=== PATIENT | female | born 1945 | race Caucasian/White ===

== ENCOUNTER 2020-06-13 09:16 | Outpatient (CLI) | payer MEDICARE, MEDICAID, SELFPAY ==
--- NOTE | ~2020-06-13 | MM_ITS ---
EXAMINATION: MM screening [facility] HISTORY: Screening TECHNIQUE: Craniocaudal and mediolateral oblique 3-D tomosynthesis images were obtained and synthetic 2-D images were generated. CAD analysis was submitted and interpreted. COMPARISON: Comparison to multiple prior studies sequentially, with oldest reviewed study dated 10/05. BREAST PARENCHYMAL COMPOSITION: There are scattered areas of fibroglandular density. FINDINGS: There is no evidence of suspicious mass, calcification, or architectural distortion to sugg est malignancy in either breast. There has been no suspicious interval change. IMPRESSION: 1. No mammographic evidence of malignancy. 2. Recommend routine screening mammography in one year. BI-RADS Category 1: Negative Reviewed, dictated and finalized at location A.
== END 2020-06-13 09:17 | disposition home or self-care (01) ==
LOC: ANHIMG 09:26
PROVIDERS: PCP Physician Assistant; Visit Provider Physician Assistant
DX: Z12.31 Encounter for screening mammogram for malignant neoplasm of breast (principal)
CPT/HCPCS: 77063; 77067

== ENCOUNTER 2021-07-10 13:57 | Outpatient (CLI) | payer MEDICARE, MEDICAID, SELFPAY ==
--- NOTE | ~2021-07-10 | DEXA_ITS ---
Bone Density Report Name: Fidelia Walters Age: 75 Sex: Female Ethnicity: White Date of : 1945 Indication: osteopenia; monitoring treatment; height loss; asthma or emphysema; postmenopausal Referring Provider: JAMI, RO Study: Bone densitometry was performed. Exam Date: July 10, 2021 Accession number: [id number] Bone Density: Region BMD T-score Z-score Classification AP Spine (L1, L2) 0.797 -1.7 0.5 Osteopenia Femoral Neck (Left) 0.509 -3.1 -1.1 Osteoporosis Total Hip (Left) 0.710 -1.9 -0.2 Osteopenia Total Hip Bilateral Avg 0.682 -2.2 -0.4 Osteopenia Femoral Neck (Right) 0.533 -2.8 -0.8 Osteoporosis Total Hip (Right) 0.654 -2.4 -0.7 Osteopenia World Health Organization criteria for BMD impression classify patients as: Normal (T-score at or above -1.0), Osteopenia (T-score between -1.0 and -2.5), or Osteoporosis (T-score at or below -2.5). 10-year Fracture Risk: FRAX not reported because: Some T-score for Spine Total or Hip Total or Femoral Neck at or below -2.5 Treated for osteoporosis Previous Exams: Region Exam Age BMD T-score BMD Change BMD Change Date g/cm2 vs Baseline vs Previous AP Spine(L1, L2) 07/10/2021 75 0.797 -1.7 -0.006(-0.8%) -0.046(-5.4%)* 04/06/2019 73 0.843 -1.2 0.039(4.9%)* 0.039(4.9%)* 03/23/2017 71 0.804 -1.6 Total Hip(Left) 07/10/2021 75 0.710 -1.9 -0.008(-1.1%) -0.017(-2.3%) 04/06/2019 73 0.726 -1.8 0.009(1.3%) 0.009(1.3%) 03/23/2017 71 0.717 -1.8 Total Hip(Right) 07/10/2021 75 0.654 -2.4 -0.084(-11.4%) -0.036(-5.3%)* 04/06/2019 73 0.690 -2.1 -0.047(-6.4%)* -0.047(-6.4%)* 03/23/2017 71 0.738 -1.7 *Denotes significance at 95% confidence level, LSC for AP Spine = 0.022 g/cm2, LSC for Total Hip = 0.027 g/cm2 Clinical Information Provided by Patient: Smokes Is being treated for osteoporosis Has used the following medications: Prolia (i.e. denosumab), Vitamin D, Calcium Has the following medical conditions: Asthma or Emphysema Patient maximum height was 60 Menopause Age: 50 No regular weight bearing exercise Does not regularly consume dairy products Drinks caffeinated beverages Onset of menses at age 14 Number of children 3 Impression: The patient has osteoporosis, based on the Left Femoral Neck T-score. The patient has risk factors, including: smoking. The BMD for the AP Spine(L1, L2) decreased, changing by -5.4% since the last DXA exam. The BMD for the Tot
--- NOTE | ~2021-07-10 | MM_ITS ---
EXAMINATION: MM screening [facility] HISTORY: Screening TECHNIQUE: Craniocaudal and mediolateral oblique 3-D tomosynthesis images were obtained and synthetic 2-D images were generated. CAD analysis was submitted and interpreted. COMPARISON: Comparison to multiple prior studies sequentially, with oldest reviewed study dated 10/05. BREAST PARENCHYMAL COMPOSITION: There are scattered areas of fibroglandular density. FINDINGS: There is no evidence of suspicious mass, calcification, or architectural distortion to sugg est malignancy in either breast. There has been no suspicious interval change. IMPRESSION: 1. No mammographic evidence of malignancy. 2. Recommend routine screening mammography in one year. BI-RADS Category 1: Negative Reviewed, dictated and finalized at location A.
== END 2021-07-10 13:58 | disposition home or self-care (01) ==
PROVIDERS: PCP Physician Assistant; Visit Provider Physician Assistant
DX: Z12.31 Encounter for screening mammogram for malignant neoplasm of breast (principal); Z78.0 Asymptomatic menopausal state; M85.88 Other specified disorders of bone density and structure, other site; M81.0 Age-related osteoporosis without current pathological fracture; M85.852 Other specified disorders of bone density and structure, left thigh; M85.851 Other specified disorders of bone density and structure, right thigh
CPT/HCPCS: 77063; 77067; 77080

== ENCOUNTER 2022-10-15 14:35 | Outpatient (CLI) | payer MEDICARE, MEDICAID, SELFPAY ==
--- NOTE | ~2022-10-15 | MM_ITS ---
EXAMINATION: MM screening [facility] HISTORY: Screening mammogram TECHNIQUE: Craniocaudal and mediolateral oblique 3-D tomosynthesis images were obtained and synthetic 2-D images were generated. CAD analysis was submitted and interpreted. COMPARISON: 07/2021, 06/13/2020, 04/06/2019 lateral screening mammogram examinations BREAST PARENCHYMAL COMPOSITION: There are scattered areas of fibroglandular density. FINDINGS: Scattered bilateral benign calcifications are again present. There is no evidence of suspic ious mass, calcification, or architectural distortion to suggest malignancy in either breast. There h as been no suspicious interval change. IMPRESSION: 1. No mammographic evidence of malignancy. 2. Recommend routine screening mammography in one year. BI-RADS Category 2: Benign finding(s). Reviewed, dictated and finalized at location A. T AND VEGETABLE INSPECTOR
== END 2022-10-15 14:36 | disposition home or self-care (01) ==
LOC: ANHIMG 14:36
PROVIDERS: PCP Physician Assistant; Visit Provider Physician Assistant
DX: Z12.31 Encounter for screening mammogram for malignant neoplasm of breast (principal)
CPT/HCPCS: 77063; 77067

== ENCOUNTER 2023-10-18 09:40 | Outpatient (CLI) | payer MEDICARE, MEDICAID, SELFPAY ==
--- NOTE | ~2023-10-18 | MM_ITS ---
EXAMINATION: MM screening [facility] BI w [facility] HISTORY: Screening mammogram TECHNIQUE: Craniocaudal and mediolateral oblique 3-D tomosynthesis images were obtained and synthetic 2-D images were generated. CAD analysis was submitted and interpreted. COMPARISON: 10/15/2022, 07/10/2021, 06/13/2020 BREAST PARENCHYMAL COMPOSITION: There are scattered areas of fibroglandular density. FINDINGS: No suspicious mass, calcification, or architectural distortion are identified in either jayme ast to suggest malignancy. There has been no suspicious interval change. IMPRESSION: 1. No mammographic evidence of malignancy. 2. Recommend routine screening mammography in one year. BI-RADS Category 1: Negative Reviewed, dictated and finalized at location A. MECHANIC APPRENTICE
--- NOTE | ~2023-10-18 | DEXA_ITS ---
Bone Density Report Name: LEVI RENO Age: 77 Sex: Female Ethnicity: White Date of : 1945 Indication: osteopenia; monitoring treatment; height loss; Referring Provider: JAMIRO Study: Bone densitometry was performed. Exam Date: October 18, 2023 Accession number: [id number] Bone Density: Region BMD T-score Z-score Classification AP Spine(L1, L2) 0.760 -2.0 0.3 Osteopenia Femoral Neck (Left) 0.519 -3.0 -0.9 Osteoporosis Total Hip (Left) 0.616 -2.7 -0.8 Osteoporosis Femoral Neck (Right) 0.520 -3.0 -0.8 Osteoporosis Total Hip (Right) 0.623 -2.6 -0.8 Osteoporosis Total Hip Mean 0.619 -2.7 -0.8 Osteoporosis World Health Organization criteria for BMD impression classify patients as: Normal (T-score at or above -1.0), Osteopenia (T-score between -1.0 and -2.5), or Osteoporosis (T-score at or below -2.5). 10-year Fracture Risk: FRAX not reported because: Some T-score for Spine Total or Hip Total or Femoral Neck at or below -2.5 Treated for osteoporosis Previous Exams: Region Exam Age BMD T-score BMD Change BMD Change Date g/cm2 vs Baseline vs Previous AP Spine (L1-L2) 10/18/2023 77 0.760 -2.0 -0.044 (-5.4%) -0.038 (-4.7%) 07/10/2021 75 0.797 -1.7 -0.006 (-0.8%) -0.046 (-5.4%) 04/06/2019 73 0.843 -1.2 0.039 (4.9%)* 0.039 (4.9%)* 03/23/2017 71 0.804 -1.6 Total Hip(Left) 10/18/2023 77 0.616 -2.7 -0.101 (-14.1% -0.093 (-13.1% 07/10/2021 75 0.710 -1.9 -0.008 (-1.1%) -0.017 (-2.3%) 04/06/2019 73 0.726 -1.8 0.009 (1.3%) 0.009 (1.3%) 03/23/2017 71 0.717 -1.8 Total Hip(Right) 10/18/2023 77 0.623 -2.6 -0.115 (-15.6% -0.031 (-4.8%) 07/10/2021 75 0.654 -2.4 -0.084 (-11.4% -0.036 (-5.3%) 04/06/2019 73 0.690 -2.1 -0.047 (-6.4%) -0.047 (-6.4%) 03/23/2017 71 0.738 -1.7 *Denotes significance at 95% confidence level, LSC for AP Spine = 0.022 g/cm2, LSC for Total Hip = 0.027 g/cm2 # Denotes dissimilar scan types or analysis methods Clinical Information Provided by Patient: Smokes Is being treated for osteoporosis Has used the following medications: Prolia (i.e. denosumab), Vitamin D, Calcium Patient maximum height was 60 Menopause Age: 50 No regular weight bearing exercise Drinks caffeinated beverages Onset of menses at age 14 Number of children 3 Impression: The patient has osteoporosis, based on the Left Femoral Neck T-score. The patient has risk factor
== END 2023-10-18 09:41 | disposition home or self-care (01) ==
LOC: ANHIMG 09:44
PROVIDERS: PCP Physician Assistant; Visit Provider Physician Assistant
DX: Z12.31 Encounter for screening mammogram for malignant neoplasm of breast (principal); Z78.0 Asymptomatic menopausal state; M85.88 Other specified disorders of bone density and structure, other site; M81.0 Age-related osteoporosis without current pathological fracture
CPT/HCPCS: 77063; 77067; 77080

== ENCOUNTER → 2024-03-01 17:52 | Outpatient (CLI) | payer MEDICARE, MEDICAID, SELFPAY ==
--- NOTE | ~2024-03-01 | XR_ITS ---
EXAM: XR hip RT 2V w AP pelvis DATE: 03/01/2024 18:21 HISTORY: FALL . COMPARISON: None available. FINDINGS: Decreased mineralization. No fracture or dislocation. No lytic or blastic lesion. Lumbar d egenerative disc disease. Mild bilateral hip osteoarthritis. Pubic symphysis chondrocalcinosis. No er osion or periosteal change. Mild scattered pelvic and hip enthesopathy. Vascular pelvic calcification s. IMPRESSION: No acute osseous finding in the pelvis or right hip. Reviewed, dictated and finalized at location K.
--- NOTE | ~2024-03-01 | XR_ITS ---
EXAM: XR lumbar spine 2-3V DATE: 03/01/2024 18:21 HISTORY: FALL . COMPARISON: None available. FINDINGS: Cholecystectomy clips. Mild lumbar scoliosis. 5 nonrib-bearing lumbar-type vertebral bodies . Pedicles intact. 3 mm anterolisthesis at L5-S1. Vertebral body heights preserved. Multilevel disc s pace narrowing and marginal osteophytosis, moderate at L3-4 through L5-S1. Vacuum phenomenon at L4-5 and L5-S1. Multilevel moderate and severe mid and lower lumbar facet hypertrophy/sclerosis. No fractu re or dislocation. Abdominal aortic calcifications without evident aneurysm. IMPRESSION: No acute fracture or traumatic malalignment detected in the lumbar spine. Grade 1 anterol isthesis at L5-S1. Multilevel degenerative disc disease, severe at L4-5 and L5-S1. Multilevel moderat e severe facet arthropathy. Reviewed, dictated and finalized at location K. IMPRESSION: No acute fracture or traumatic malalignment detected in the lumbar spine. Grade 1 anterolisthesis at L5-S1. Multilevel degenerative disc disease, severe at L4-5 and L5-S1. Multilevel moderate severe facet arthropathy.
--- NOTE | ~2024-03-01 | XR_ITS ---
EXAM: XR foot RT min 3V DATE: 03/01/2024 18:20 HISTORY: PAIN AFTER FALL . COMPARISON: None available. FINDINGS: Decreased mineralization. No fracture or dislocation. No lytic or blastic lesion. Degenera tive changes at the first MTP joint and multiple midfoot joints. Moderate Achilles and plantar enthes opathy. No erosion or periosteal change. Soft tissues within normal limits. IMPRESSION: No acute osseous finding in the right foot. Reviewed, dictated and finalized at location K.
== END ==
PROVIDERS: PCP Physician Assistant; Visit Provider Physician Assistant
DX: M79.671 Pain in right foot (principal); M25.551 Pain in right hip; M54.50 Low back pain, unspecified
CPT/HCPCS: 72100; 73502; 73630

== ENCOUNTER 2025-03-30 14:47 | Outpatient (CLI) | payer MEDICARE, MEDICAID, SELFPAY ==
--- NOTE | ~2025-03-30 | MM_ITS ---
EXAMINATION: MM screening monica BI w solitario HISTORY: Screening TECHNIQUE: Craniocaudal and mediolateral oblique 3-D tomosynthesis images were obtained and synthetic 2-D images were generated. CAD analysis was submitted and interpreted. COMPARISON: Comparison to multiple prior studies sequentially, with oldest reviewed study dated 03/25. BREAST PARENCHYMAL COMPOSITION: Dense: The breasts are heterogeneously dense, which may obscure small masses FINDINGS: There is no evidence of suspicious mass, calcification, or architectural distortion to sugg est malignancy in either breast. There has been no suspicious interval change. IMPRESSION: 1. No mammographic evidence of malignancy. 2. Recommend routine screening mammography in one year. BI-RADS Category 1: Negative Reviewed, dictated and finalized at location A.
--- OUTSIDE RECORDS SUMMARY | 2025-03-30 14:51 | XMS_ITS | Clinical Summary ---
Author Organization [facility] [address] Address [address] [place] [address] Care Team Providers Care Junior Qa Analyst Name Role Phone Mandie Carranza Primary Care Provider [phone] Allergies Active Allergy Reactions Criticality Noted Date Comments Fish Containing Products Unknown 12/12/2018 Lisinopril Angioedema High 12/12/2018 Niacin Rash Medium 02/21/2019 Nitrofurantoin Monohyd/M-Cryst Syncope High 12/12 Tomato Unknown 12/12/2018 Medications oxygen 2 L/min nightly 08/11/20 16 Active ferrous sulfate 325 mg (65 mg of elemental iron) tablet 2 (two) times a day Active calcium carbonate-vitamin D3 1,500 mg (600mg elemental) -800 unit per tablet Take 1 tablet by mouth daily Active aspirin 81 mg enteric coated tablet Take 1 tablet (81 mg total) by mouth daily Active cetirizine 10 mg capsule Take by mouth Active cyanocobalamin, vitamin B-12, 1,000 mcg/mL kit 05/16/20 24 Active lovastatin (MEVACOR) 20 mg tablet TAKE 1 TABLET(20 MG) BY MOUTH DAILY 90 tablet 2 12/12/19 25 Active metFORMIN XR (GLUCOPHAGE XR) 500 mg 24 hr tablet TAKE 1 TABLET(500 MG) BY MOUTH TWICE DAILY 180 tablet 1 12/21/19 25 Active Ventolin HFA 90 mcg/actuation inhalerIndication s:Chronic obstructive pulmonary disease, unspecified COPD type (HCC) INHALE 2 PUFFS BY MOUTH EVERY 4 HOURS NEEDED FOR WHEEZING OR SHORTNESS OF BREATH 54 g 03/19/20 25 Active blood glucose diagnostic (OneTouch Ultra Test) stripIndications: Type 2 diabetes mellitus with hyperlipidemia (HCC) USE 3-4 TIMES DAILY FOR TESTING. 100 strip 11 03/29/20 25 Active fluticasone-umecl idin-vilanter (Trelegy Ellipta) 100-62.5-25 mcg inhalerIndication s:Chronic obstructive pulmonary disease, unspecified COPD type (HCC) Inhale 1 puff daily 60 each 1 03/29/20 25 Active blood glucose diagnostic (OneTouch Ultra Test) stripIndications: Type 2 diabetes mellitus with hyperlipidemia (HCC) USE 1 STRIP EACH TO TEST ONCE DAILY 100 strip 11 11/28/19 25 2024 Discontinued Trelegy Ellipta 100-62.5-25 mcg inhalerIndication s:Chronic obstructive pulmonary disease, unspecified COPD type (HCC) INHALE 1 PUFF BY MOUTH DAILY 60 each 1 01/19/20 25 2024 Discontinued(R eomercy) Ventolin HFA 90 mcg/actuation inhalerIndication s:Chronic obstructive pulmonary disease, unspecified COPD type (HCC) INHALE 2 PUFFS BY MOUTH EVERY 4 HOURS NEEDED FOR WHEEZING OR SHORTNESS OF BREATH 54 g 01/29/20 25 2024 Discontinued Prolia 60 mg/mL syringe INJECT 1 SYRINGE (60 MG) UNDER THE SKIN ONCE FOR 1 DOSE 1 mL 03/06/20 25 2024 Discontinued Hospital, Clinic, or Other Facility Administered Medication Ordered Dose Route Frequency Start Date End Date Status denosumab (PROLIA) subcutaneous syringe 60 mgIndications:Age-related osteoporosis without current pathological fracture 60 mg subQ Once 03/15/2025 03/15/2025 Ended Active Problems Problem Noted Date Diagnosed Date Need for vaccination 09/18/2024 Assessment & Plan (09/18/2024 12:57 PM BATTING MACHINE OPERATOR): Prevnar 20 updated in the office today Medicare annual wellness visit, subsequent 09/18 Assessment & Plan (09/18/2024 12:57 PM BATTING MACHINE OPERATOR): Encouraged healthy lifestyle, good nutrition and exercise. Encouraged Calcium and Vitamin D and weight bearing exercise for bone health. Reviewed immunizations. Reviewed age appropirate screenings. Medicare Wellness Documentation is completed within the chart Breast cancer screening by mammogram 09/18/2024 Assessment & Plan (09/18/2024 12:57 PM BATTING MACHINE OPERATOR): Mammogram order provided BMI 22.0-22.9, adult 07/05/2022 Assessment & Plan (03/15/2025 11:08 AM CDT): Weight/BMI is in healthy range. Continue healthy lifestyle to maintain. Assessment & Plan (09/18/2024 10:15 AM BATTING MACHINE OPERATOR): Weight/BMI is in healthy range. Continue healthy lifestyle to maintain. Assessment & Plan (03/12/2024 8:54 PM CDT): Weight/BMI is in healthy range. Continue healthy lifestyle to maintain. Assessment & Plan (08/02/2023 10:57 AM BATTING MACHINE OPERATOR): Weight/BMI is in healthy range. Continue healthy lifestyle to maintain. Assessment & Plan (07/05/2022 8:18 PM CDT): Weight/BMI is in healthy range. Continue healthy lifestyle to maintain. Anemia 07/16/2019 Assessment & Plan (08/15/2023 9:25 PM BATTING MACHINE OPERATOR): Continue to monitor labs Assessment & Plan (07/05/2022 8:17 PM CDT): Continue to monitor labs Assessment & Plan (06/01/2021 2:13 AM CDT): Monitor labs Age related osteoporosis 02/25/2019 Assessment & Plan (09/18/2024 12:58 PM BATTING MACHINE OPERATOR): Patient with osteoporosis. Continue monitor DEXA. Continue calcium vitamin-D and exercise. Strongly encouraged complete smoking cessation Patient has been tolerating Prolia well. Injection given in the office today. Assessment & Plan (03/12/2024 8:53 PM CDT): Patient with osteoporosis. Last DEXA was in October of 2023. She has been on Prolia. Missed her last injection in September of 2023. She will need labs prior to injection. Will place through prescription to allow it to ship to our office to be injected if labs are stable Assessment & Plan (08/15/2023 9:25 PM BATTING MACHINE OPERATOR): Patient with osteoporosis. Encouraged complete smoking cessation. Has been on Prolia. Due for injection. Due for labs prior to getting injection. Order provided. Continue calcium vitamin-D and exercise Assessment & Plan (11/28/2022 4:08 PM CDT): Continue Prolia. Due for labs for stability. Continue vitamin-D and exercise. Monitor DEXA Assessment & Plan (07/05/2022 8:17 PM CDT): Patient has been doing well with Prolia. She will be due for her next injection in July after the . Due for labs. Assessment & Plan (01/27/2022 3:30 PM CDT): Pearly injected today. Next 1 will be due July 09 Assessment & Plan (08/02/2021 10:35 PM BATTING MACHINE OPERATOR): Discussed osteoporosis, Tscores and treatment options. Needs Calcium, Vit D and Weight bearing exercise. Continue Prolia q 6 months Assessment & Plan (06/01/2021 2:13 AM CDT): Last DXA 04/2019 so due -- Continue Prolia Check Calcium and vitamin D. Assessment & Plan (12/28/2020 8:11 PM CDT): Discussed osteoporosis, Tscores and treatment options. Needs Calcium, Vit D and Weight bearing exercise. On Prolia Due 01/02/2021 It has been delivered by her insurance to our office. Need UTD calsium level. She is taking Calcium and Vitamin D. Return for Prolia injection once labs are avaialble. Assessment & Plan (08/03/2020 11:39 PM BATTING MACHINE OPERATOR): Due for Prolia. Needs labs prior. Assessment & Plan (04/20/2020 10:17 AM CDT): Last DXA 2018. Prolia due again 05/2020 Assessment & Plan (11/25/2019 6:48 PM CDT): Discussed osteoporosis, Tscores and treatment options. Needs Calcium, Vit D and Weight bearing exercise. She is past due for her Prolia therapy. Given today in the office. Next one due in 05/2020 Assessment & Plan (07/16/2019 1:48 PM BATTING MACHINE OPERATOR): Continue Prolia Assessment & Plan (03/02/2019 11:42 AM CDT): Continue calcium, vitamin D and exercise. Prolia given today in the office (patient supplied/shipped from her pharmacy). Pt tolerated well. Return in 6 months for next injection. Prolia [facility] [address]05-70 Lot: [id number] Colonoscopy refused 02/21/2019 Assessment & Plan (09/18/2024 12:56 PM BATTING MACHINE OPERATOR): Patient continues to refuse colon cancer screening. She understands the risk of lack of screening. Assessment & Plan (03/12/2024 8:44 PM CDT): Refuses colon cancer screening Assessment & Plan (08/15/2023 9:22 PM BATTING MACHINE OPERATOR): Patient refuses colon cancer screening. Reviewed importance of early detection Assessment & Plan (12/28/2020 8:09 PM CDT): Reviewed importance of screening. Pt voiced understanding. Assessment & Plan (08/03/2020 11:50 PM BATTING MACHINE OPERATOR): Reviewed importance of screening. Pt voiced understanding. Assessment & Plan (04/20/2020 10:19 AM CDT): Reviewed importance of screening. Pt voiced understanding. Assessment & Plan (02/25/2019 1:06 PM CDT): Refuses colon cancer screening. Verbalizes risk of not screening. Type 2 diabetes mellitus wit h complication, with long-term current use of insulin 02/17/2019 Assessment & Plan (09/18/2024 12:54 PM BATTING MACHINE OPERATOR): Stressed importance of continued A1c control to minimize the alf effects of diabetes. Bring accuchecks to office when instructed to do so. Check A1c about every 3-6 months. Take medication as prescribed. Get annual eye exam. Encouraged MALLORY/Statin if able to tolerate. Encouraged weight control and encouraged diabetic diet and exercise. A1c is at goal with the metformin XR 500 b.i.d.. Encouraged diabetic eye exam. She plans to get the UA are prior to her next visit as she was unable to urinate when she went to draw this last 1 Assessment & Plan (03/12/2024 8:52 PM CDT): Stressed importance of continued A1c control to minimize the alf effects of diabetes. Bring accuchecks to office when instructed to do so. Check A1c about every 3-6 months. Take medication as prescribed. Get annual eye exam. Encouraged MALLORY/Statin if able to tolerate. Encouraged weight control and encouraged diabetic diet and exercise. Continue metformin XR 500 2 tabs b.i.d.. Due for labs Assessment & Plan (08/02/2021 10:34 PM BATTING MACHINE OPERATOR): Stressed importance of continued A1c control to minimize the intermediate school teacher effects of diabetes. Bring accuchecks to office when instructed to do so. Check A1c about every 3-6 months. Take medication as prescribed. Get annual eye exam. Encouraged MALLORY/Statin if able to tolerate. Encouraged weight control and encouraged diabetic diet and exercise. Continue metformin and insulin. Refills sent Assessment & Plan (06/01/2021 2:12 AM CDT): Stressed importance of continued A1c control to minimize the alf effects of diabetes. Bring accuchecks to office when instructed to do so. Check A1c about every 3-6 months. Take medication as prescribed. Get annual eye exam. Encouraged MALLORY/Statin if able to tolerate. Encouraged weight control and encouraged diabetic diet and exercise. A1c is very tightly controlled. Reviewed s/s hypoglycemia and if she has lows in the AM will need to pull back on the basaglar. Assessment & Plan (12/28/2020 8:09 PM CDT): Stressed importance of continued A1c control to minimize the intermediate school teacher effects of diabetes. Bring accuchecks to office when instructed to do so. Check A1c about every 3-6 months. Take medication as prescribed. Get annual eye exam. Encouraged MALLORY/Statin if able to tolerate. Encouraged weight control and encouraged diabetic diet and exercise. bogdan Gifford 8 units Assessment & Plan (08/03/2020 11:51 PM BATTING MACHINE OPERATOR): Stressed importance of continued A1c control to minimize the alf effects of diabetes. Bring accuchecks to office when instructed to do so. Check A1c about every 3-6 months. Take medication as prescribed. Get annual eye exam. Encouraged MALLORY/Statin if able to tolerate. Encouraged weight control and encouraged diabetic diet and exercise. A1c 6 so well controlled Assessment & Plan (04/20/2020 10:19 AM CDT): Stressed importance of continued A1c control to minimize the intermediate school teacher effects of diabetes. Bring accuchecks to office when instructed to do so. Check A1c about every 3-6 months. Take medication as prescribed. Get annual eye exam. Encouraged MALLORY/Statin if able to tolerate. Encouraged weight control and encouraged diabetic diet and exercise. Continue metformin and insulin. Needs labs Assessment & Plan (11/25/2019 6:49 PM CDT): Stressed importance of continued A1c control to minimize the intermediate school teacher effects of diabetes. Bring accuchecks to office when instructed to do so. Check A1c about every 3-6 months. Take medication as prescribed. Get annual eye exam. Encouraged MALLORY/Statin if able to tolerate. Encouraged weight control and encouraged diabetic diet and exercise. Assessment & Plan (07/16/2019 1:58 PM BATTING MACHINE OPERATOR): Stressed importance of continued A1c control to minimize the alf effects of diabetes. Bring accuchecks to office when instructed to do so. Check A1c about every 3-6 months. Take medication as prescribed. Get annual eye exam. Encouraged MALLORY/Statin if able to tolerate. Encouraged weight control and encouraged diabetic diet and exercise. Assessment & Plan (02/25/2019 1:04 PM CDT): Stressed importance of continued A1c control to minimize the alf effects of diabetes. Bring accuchecks to office when instructed to do so. Check A1c about every 3-6 months. Take medication as prescribed. Get annual eye exam. Encouraged MALLORY/Statin if able to tolerate. Encouraged weight control and encouraged diabetic diet and exercise. Needs eye exam. Type 2 diabetes mellitus with hyperlipidemia Assessment & Plan (09/18/2024 12:56 PM BATTING MACHINE OPERATOR): Encouraged patient to follow low fat/low chol diet like the Mediterranean diet. Increase good fats in the diet. Increase exercise. Monitor labs as needed. Continue lovastatin 20 Assessment & Plan (03/12/2024 8:52 PM CDT): Encouraged patient to follow low fat/low chol diet like the Mediterranean diet. Increase good fats in the diet. Increase exercise. Monitor labs as needed. Continue lovastatin 20 Assessment & Plan (08/15/2023 9:24 PM BATTING MACHINE OPERATOR): Stressed importance of continued A1c control to minimize the intermediate school teacher effects of diabetes. Bring accuchecks to office when instructed to do so. Check A1c about every 3-6 months. Take medication as prescribed. Get annual eye exam. Encouraged MALLORY/Statin if able to tolerate. Encouraged weight control and encouraged diabetic diet and exercise. Insert lipid continue current regimen. Past due for labs. Last A1c was 6.1 and if this is the case she can hold the Basaglar as I am concerned she could become hypoglycemic with an A1c at 6.1. She states she has never experienced hypoglycemics type symptoms. Assessment & Plan (11/28/2022 4:08 PM CDT): Stressed importance of continued A1c control to minimize the alf effects of diabetes. Bring accuchecks to office when instructed to do so. Check A1c about every 3-6 months. Take medication as prescribed. Get annual eye exam. Encouraged MALLORY/Statin if able to tolerate. Encouraged weight control and encouraged diabetic diet and exercise. Encouraged patient to follow low fat/low chol diet like the Mediterranean diet. Increase good fats in the diet. Increase exercise. Monitor labs as needed. Continue lovastatin Encouraged to do Accu-Cheks to see if some of the dizziness is related to low blood sugar. A1c is 6.1. She may be able to stop the insulin and just utilize the metformin. With her age goal between 7 and 8 is very acceptable and she is significantly below that. Will await readings and A1c to see where the levels are to make further decision. Assessment & Plan (07/05/2022 8:16 PM CDT): Stressed importance of continued A1c control to minimize the alf effects of diabetes. Bring accuchecks to office when instructed to do so. Check A1c about every 3-6 months. Take medication as prescribed. Get annual eye exam. Encouraged MALLORY/Statin if able to tolerate. Encouraged weight control and encouraged diabetic diet and exercise. Encouraged patient to follow low fat/low chol diet like the Mediterranean diet. Increase good fats in the diet. Increase exercise. Monitor labs as needed. Metformin and then Basaglar 8 units HS as needed. A1c is well controlled. Continue lovastatin 20 Assessment & Plan (01/27/2022 3:30 PM CDT): Stressed importance of continued A1c control to minimize the alf effects of diabetes. Bring accuchecks to office when instructed to do so. Check A1c about every 3-6 months. Take medication as prescribed. Get annual eye exam. Encouraged MALLORY/Statin if able to tolerate. Encouraged weight control and encouraged diabetic diet and exercise. Continue metformin 500 b.i.d. Encouraged patient to follow low fat/low chol diet like the Mediterranean diet. Increase good fats in the diet. Increase exercise. Monitor labs as needed. Continue lovastatin at 20 mg. Assessment & Plan (06/01/2021 2:13 AM CDT): Encouraged patient to follow fat/low chol diet like the Mediterranean diet. Increase good fats in the diet. Increase exercise. Monitor labs as needed. Continue statin Assessment & Plan (12/28/2020 8:09 PM CDT): Encouraged patient to follow fat/low chol diet like the Mediterranean diet. Increase good fats in the diet. Increase exercise. Monitor labs as needed. Due for labs Assessment & Plan (08/03/2020 11:43 PM BATTING MACHINE OPERATOR): Encouraged patient to follow fat/low chol diet like the Mediterranean diet. Increase good fats in the diet. Increase exercise. Monitor labs as needed. On statin Assessment & Plan (04/20/2020 10:19 AM CDT): Encouraged patient to continue low fat/low chol diet. Continue exercise. Increase good fats in the diet. Monitor labs as needed. Assessment & Plan (11/25/2019 6:48 PM CDT): Encouraged patient to continue low fat/low chol diet. Continue exercise. Increase good fats in the diet. Monitor labs as needed. Continue statin Assessment & Plan (07/16/2019 1:59 PM BATTING MACHINE OPERATOR): Encouraged patient to continue low fat/low chol diet. Continue exercise. Increase good fats in the diet. Monitor labs as needed. Assessment & Plan (02/25/2019 1:05 PM CDT): Encouraged patient to continue low fat/low chol diet. Continue exercise. Increase good fats in the diet. Monitor labs as needed. Continue statin COPD (chronic obstructive pulmonary disease) Assessment & Plan (09/18/2024 12:56 PM BATTING MACHINE OPERATOR): Patient with known COPD. Encouraged complete smoking cessation. Will try breasts tree. See chronic respiratory failure above Assessment & Plan (03/12/2024 8:50 PM CDT): Severe COPD with respiratory failure and hypoxia. On continuous O2. Continue with Dr. Fofana pulmonology. She has using the Anoro and Ventolin as instructed. Patient continues to decline low-dose CT Assessment & Plan (08/15/2023 9:24 PM BATTING MACHINE OPERATOR): Patient with significant COPD. Has O2 at home but only uses it w hen I needed. Advise she probably needs to be on it all the time. Has a normal at home. Uses albuterol p.r.n. Assessment & Plan (07/05/2022 8:17 PM CDT): Encouraged complete smoking cessation. Continue Ventolin and RO and the continuous O2 as instructed by pulmonology Assessment & Plan (06/01/2021 2:14 AM CDT): Stop smoking. Continue per Dr. Chin Assessment & Plan (12/28/2020 8:07 PM CDT): Continue per DR. Fofana Assessment & Plan (08/03/2020 11:39 PM BATTING MACHINE OPERATOR): Continue per Pulmonary Assessment & Plan (04/20/2020 10:17 AM CDT): Continue per pulmonary Assessment & Plan (11/25/2019 6:45 PM CDT): STOP SMOKING. On Symbicort and albuterol prn. Not using Spiriva (has refused Incruse also in the past) Assessment & Plan (10/25/2019 4:33 PM BATTING MACHINE OPERATOR): STOP smoking. Check CT lungs. Take Advair bid as directed. Refuses Incruse so may change to Spiriva. Will discuss referral to Pulmonary again at her next visit. Assessment & Plan (02/25/2019 1:01 PM CDT): COPD exacerbation is resolving after the steroids and antibiotics. Chronic respiratory failure with hypoxia, on home O2 therapy 02/17/2019 Assessment & Plan (09/18/2024 12:56 PM BATTING MACHINE OPERATOR): Chronic respiratory failure on supplemental O2 therapy with hypoxia. She continues to smoke even with the COPD. Strongly encouraged complete cessation. She has been on Anoro. Inquired if she had ever been on Breztri or triple therapy and she denies this. Willing to try a sample. Encouraged her to call us with an update on how it does and if she likes it will send it out. Remind her to rinse her mouth out to avoid yeast infections. Patient states currently just using the oxygen at night. Continue to monitor closely. Has a O2 monitor and if continues to remain in the lower 90s especially with activity she needs to use her oxygen all the time. Patient verbalizes understanding Strongly recommend complete smoking cessation Assessment & Plan (03/12/2024 8:50 PM CDT): Severe COPD with respiratory failure and hypoxia. On continuous O2. Continue with Dr. Fofana pulmonology. She has using the Anoro and Ventolin as instructed. Patient continues to decline low-dose CT Assessment & Plan (08/15/2023 9:24 PM BATTING MACHINE OPERATOR): Patient with significant COPD. Has O2 at home but only uses it w hen I needed. Advise she probably needs to be on it all the time. Has a normal at home. Uses albuterol p.r.n. Assessment & Plan (08/03/2020 11:37 PM BATTING MACHINE OPERATOR): Continue per pulmonary Assessment & Plan (04/20/2020 10:16 AM CDT): Continue per Pulmonary Assessment & Plan (11/25/2019 6:44 PM CDT): Refer to Pulmonary for further evlauation Assessment & Plan (10/25/2019 4:31 PM BATTING MACHINE OPERATOR): On O2 at night. May need to assess for daytime need. Assessment & Plan (02/25/2019 1:01 PM CDT): Has needed supplies/O2 Nocturnal hypoxia 02/17/2019 Assessment & Plan (12/28/2020 8:07 PM CDT): Continue O2 per Dr. Fofana Assessment & Plan (08/03/2020 11:39 PM BATTING MACHINE OPERATOR): On O2, managed by pulmonary Assessment & Plan (11/25/2019 6:41 PM CDT): On hs O2. Assessment & Plan (10/25/2019 4:31 PM BATTING MACHINE OPERATOR): On night O2 Assessment & Plan (02/25/2019 1:02 PM CDT): On nighttime O2 Allergy to MALLORY inhibitors 02/17/2019 Overview (06/27/2020): Angioedema Assessment & Plan (02/25/2019 1:05 PM CDT): No change Cigarette smoker 02/17/2019 Assessment & Plan (09/18/2024 12:56 PM BATTING MACHINE OPERATOR): Encouraged smoking cessation. Discussed 3 minutes. Reviewed options for assistance with cessation. Reviewed alf sequela associated with smoking. Pt declines assistance at this time but may contact the office at anytime for further help as they desire. Assessment & Plan (03/12/2024 8:53 PM CDT): Encouraged smoking cessation. Discussed 3 minutes. Reviewed options for assistance with cessation. Reviewed alf sequela associated with smoking. Pt declines assistance at this time but may contact the office at anytime for further help as they desire. Patient declines low-dose CT Assessment & Plan (08/15/2023 9:23 PM BATTING MACHINE OPERATOR): Encouraged smoking cessation. Discussed 3 minutes. Reviewed options for assistance with cessation. Reviewed alf sequela associated with smoking. Pt declines assistance at this time but may contact the office at anytime for further help as they desire. Refuses low-dose CT Assessment & Plan (07/05/2022 8:17 PM CDT): Encouraged smoking cessation. Discussed 3 minutes. Reviewed options for assistance with cessation. 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 Pt declines assistance at this time but may contact the office at anytime for further help as they desire. Assessment & Plan (08/02/2021 10:34 PM BATTING MACHINE OPERATOR): Encouraged smoking cessation. Discussed 3 minutes. Reviewed options for assistance with cessation. 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 Pt declines assistance at this time but may contact the office at anytime for further help as they desire. Assessment & Plan (06/01/2021 2:15 AM CDT): Encouraged smoking cessation. Discussed 3 minutes. Reviewed options for assistance with cessation. 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 Pt declines assistance at this time but may contact the office at anytime for further help as they desire. Assessment & Plan (12/28/2020 8:09 PM CDT): Encouraged smoking cessation. Discussed 3 minutes. Reviewed options for assistance with cessation. 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 Pt declines assistance at this time but may contact the office at anytime for further help as they desire. Assessment & Plan (08/03/2020 11:48 PM BATTING MACHINE OPERATOR): Encouraged smoking cessation. Discussed 3 minutes. Reviewed options for assistance with cessation. Reviewed alf sequela associated with smoking. Pt declines assistance at this time but may contact the office at anytime for further help as they desire. Assessment & Plan (04/20/2020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 consistent with prior granulomatous disease. The gallbladder is surgically absent. Limited images of the upper abdomen do not demonstrate any other significant abnormality on this noncontrast examination. Bone windows do not demonstrate any abnormal osseous lytic or blastic lesions. 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 IMPRESSION: 1. No CT evidence of an acute cardiopulmonary process. 2. No pulmonary nodules or masses. 3. Mild centrilobular and paraseptal pulmonary emphysema. Lung-RADS v1.1 category 1: Negative. Recommendation: Continue annual screening LDCT in 12 months. THIS IS AN ELECTRONICALLY VERIFIED FINAL REPORT 11/09/2019 7:27 AM - Electronically signed by Gilmer ANGUIANO T: Report ID: [id number] Reading Location: [place] [address] REPORT ELECTRONICALLY SIGNED IN OTHER VENDOR SYSTEM Resulting Agency Comment O Procedure Note Gilmer García MD - 11/09/2019 Patient Name: Heide WALTERS Dr: Mandie Carranza PA-COCarmenB: 1945 Exam Date: 11/07/19 1313 Age: 73 Sex: Female MR#: [id number] Loc: RADIOLOGY REPORT Order #[id number] CT Scan CT Lung Screen Signed EXAM DESCRIPTION: CT Lung Screen REASON FOR STUDY: Screening CT of the chest in a 73-year-old woman with59 pack-year smoking history, currently still smoking. Additional history:None. TECHNIQUE: Low dose CT scan of the chest was performed withoutintravenous contrast using helical scanning technique. The exam extends from the lung apices through the lung bases. Automatic exposure control was used as adose optimization technique. NOTE: This study was performed for the specific purposes of lung cancer screening and is not an alternative to diagnostic chest CT. RADIATION DOSE: CT dose index volume (CTDIvol) = 1.57 mGy COMPARISON: None available FINDINGS: There is mild centrilobular and paraseptal pulmonary emphysema. There ismild atelectasis in the anterior right upper lobe and the lingula. There isno focal consolidation, pneumothorax, or pleural effusion. There are no pulmonary nodules or masses. The heart is normal in size with no pericardial effusion. There is mild atherosclerotic calcification in the coronary arteries and thoracicaorta. The thoracic aorta is normal in caliber. There is no mediastinal, hilar, axillary, or supraclavicularlymphadenopathy. There are punctate calcifications in the spleen, consistent with prior granulomatous disease. The gallbladder is surgically absent. Limitedimages of the upper abdomen do not demonstrate any other significant abnormalityon this noncontrast examination. Bone windows do not demonstrate any abnormal osseous lytic or blasticlesions. There is mild multilevel degenerative disc disease in the thoracicspine. IMPRESSION: 1. No CT evidence of an acute cardiopulmonary process. 2. No pulmonary nodules or masses. 3. Mild centrilobular and paraseptal pulmonary emphysema. Lung-RADS v1.1 category 1: Negative. Recommendation: Continue annual screening LDCT in 12 months. THIS IS AN ELECTRONICALLY VERIFIED FINAL REPORT 11/09/2019 7:27 AM - Electronically signed by Gilmer ANGUIANO T: Report ID: [id number] Reading Location: [place] [address] REPORT ELECTRONICALLY SIGNED IN OTHER VENDOR SYSTEM Mandie RAMÍREZ IMG CT PROCEDURES Final Re sult from Last 3 Months or Most Recently Relevant to Health Maintenance Insurance MEDICARE [facility] MEDICARE IDPA Care Teams Junior Qa Analyst Relationship Specialty Start Date End Date Mandie Carranza PA [address] [place], [place] [id number] PCP - General Internal Medicine 12/23/18
--- OUTSIDE RECORDS SUMMARY | 2025-03-30 14:51 | XMS_ITS | Encounter Summary ---
Author Organization [facility] Healthcare Address [address] [place] [address] Care Team Providers Care Religious Education Teacher Name Role Phone Mandie Carranza Primary Care Provider +1- [phone] Reason for Visit * Reason Onset Date Comments Symptom Based Call 03/26/2025 Encounter Details Date Type Department Care Team (Late st Contact Info) Description 03/26/2025 Telephone [facility] Family Medicine [address] [place] [address] Mandie Carranza PA [email or web address] [place] [address] Symptom Based Call Social History Tobacco Use Types Packs/Day Years Used Date Smoking Tobacco: Some Days Cigarettes 0.3 3 Smokeless Tobacco: Never Comments:tries to keep numbe r of cigarettes under 20 daily Alcohol Use [...] on file 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 She has not been checking her BP. When asked how often she takes Tyl and Ibu for her HERRERA she stated not very often because she takes enough pills. Pt stated the HERRERA are easing up and she does not have one today. She will call back if she gets more. * Telephone Encounter - Mandie Carranza PA - 03/28/2025 6:30 PM CDT Are her O2 sats always above 92%? Hypoxia can contribute to HERRERA What is her BP? HTN can contribute to HERRERA If the Tylenol and or IBU works, how is she dosing it? Is she taking appropriate amount? Excedrin Migraine is available OTC. Flonase nasal spray will sometimes help with frontal headaches if caused by allergies. If the HERRERA persist, I will need to see her as she may need head imaging. If she has any stroke like symptoms, she needs to go to the ER. * Telephone Encounter - Ericka Recinos LPN - 03/28/2025 11:41 AM CDT Called patient to get more details on the headaches. Patient stated that the headache is constant and stays localized in her forehead. She takes OTC Advil and Tyl with relief at times. Pt also take Cetirizine daily. She reports nasal drainage that is clear but states that is all the time due to herCOPD. Explained to patient that provider does not thing the Trelegy is the cause of the headache asshe has been on that since Oct 2024 and is just now experiencing a headache. Explained to pt to continue the Trelegy. Patient stated that she stopped Trelegy on 03/26 after her phone call. Asked pt ifthe HERRERA resolved and pt stated not yet. Explained to pt that if she stopped the inhaler and the HAcontinues then the HERRERA is not from inhaler so pt should restart the Trelegy. Pt stated she would. Ptstated she could not come back for another appt at this time. Please advise on HERRERA relief. * Telephone Encounter - Mandie Carranza PA - 03/28/2025 12:56 AM CDT I don't think the Trelegy would be the cause of headaches as she has been on it for 6 months. Any more description of the Headaches? It is difficulty to determine the cause of HERRERA with out seeing her/interviewing her. Can she set an appointment and set up transporation? * Telephone Encounter - Ericka Recinos LPN - 03/26/2025 11:54 AM CDT Patient has been on Trelegy inhaler since Oct 2024. Please also review the telephone encounter from09/21/24 which the patient stated Patient is wantng to know if she can try the Trelegy again. She did not realize that she was to have rinsed her mouth out after using it. The Anoro does not seem to be helping much Please advise. * Telephone Encounter - Omar Solorzano - 03/26/2025 11:44 AM CDT Symptom Based Call Chief Complaint(s): headaches Duration: a month What type of symptom(s) is the patient experiencing? Non-Emergent. Is this a new or reoccurring symptom(s)? new What have you tried to help your symptom(s)? Nothing Why was appointment not scheduled? Patient seeking care without an appointment; appointment was offered by . Patient wants to switch her Trelegy back to Enoro as she believes her inhaler is the cause Additional Comments: Patient stated she is unable to be seen for appt because she has no transportation or way to get to appt and she will be going on a vacation in April Does message need to be routed? Yes-Action Needed documented in this encounter Plan of Treatment Not on file documented as of this encounter Visit Diagnoses Not on filedocumented in this encounter Care Teams Religious Education Teacher Relationship Specialty Start Date End Date Mandie Carranza PA [address] [facility] [address] [place] [address] PCP - General Internal Medicine 12/23/18 documented as of this encounter
--- OUTSIDE RECORDS SUMMARY | 2025-03-30 14:51 | XMS_ITS | Encounter Summary ---
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 Gender Identity Female 11/12/2019 11:13 PM CDT Sexual Orientation Straight 11/12/2019 11 :13 PM CDT Occupation Industry Job Start Date Job End Date Retired Not on file Not on file Not on file documented as of this encounter Ordered Prescriptions Prescription Sig Dispense Quantity Refills Last Filled Start Date End Date fluticasone-umeclid in-vilanter (Trelegy Ellipta) 100-62.5-25 mcg inhalerIndications: Chronic obstructive pulmonary disease, unspecified COPD type (HCC) Inhale 1 puff daily 60 each 1 03/29/2025 documented in this encounter Miscellaneous Notes * Telephone Encounter - Ericka Recinos LPN - 03/29/2025 1:37 PM CDT Refill sent per pt request documented in this encounter Plan of Treatment Not on file documented as of this encounter Visit Diagnoses Diagnosis Chronic obstructive pulmonary disease, unspecified COPD type (HCC) documented in this encounter Discontinued Medications Medication Sig Discontinue Reason Start Date End Da te Trelegy Ellipta 100-62.5-25 mcg inhalerIndications:Chroni c obstructive pulmonary disease, unspecified COPD type (HCC) INHALE 1 PUFF BY MOUTH DAILY Reorder 01/18/2025 03/29/2025 documented as of this encounter Care Teams Police Officer Relationship Specialty Start Date End Date Mandie Carranza PA [address] [facility] [address] [place] [address] PCP - General Internal Medicine 12/23/18 documented as of this encounter
--- OUTSIDE RECORDS SUMMARY | 2025-03-30 14:51 | XMS_ITS | Encounter Summary ---
Author Organization [facility] Healthcare Address [address] [place] [address] Care Team Providers Care Tnt Line Supervisor Name Role Phone Mandie Carranza Primary Care Provider +1- [phone] Encounter Details Date Type Department Care Team (Latest Contact Info) Description 03/15/2025 Results Follow-Up [facility] Medical Group Family Medicine [address] [facility] [address] [place] [address] Mandie Carranza PA [address] [facility] [address] [place] [address] Albumin Creatinine Ratio, Urine, Vitamin D 25 hydroxy, Comprehensive metabolic panel Social History Tobacco Use Types Packs/Day Years [...] on file 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 Never 03/15/2025 11:04 AM Otilia Musa MA Q2: How many drinks containing alcohol do you have on a typical day when you are drinking? Patient does not drink 03/15/2025 11:04 AM Otilia Musa MA Q3: How often do you have six or more drinks on one occasion? Never 03/15/2025 11:04 AM Otilia Musa MA documented as of this encounter Plan of Treatment Not on file documented as of this encounter Visit Diagnoses Not on filedocumented in this encounter Care Teams Tnt Line Supervisor Relationship Specialty Start Date End Date Mandie Carranza PA [address] [place] [id number] PCP - General Internal Medicine 12/23/18 documented as of this encounter
--- OUTSIDE RECORDS SUMMARY | 2025-03-30 14:51 | XMS_ITS | Referral Summary ---
Author Organization [facility] [address] [facility] Address [address] [place] [address] Care Team Providers Care Managing Editor Name Role Phone Mandie Carranza Primary Care Provider [phone]- [phone] Encounters Date Type Department Care Team Description 03/29/[address] [place] [phone] Mandie Carranza PA 03/26/[address] [place] [phone] Mandie Carranza PA Symptom Based Call 03/15/2025 Results Follow-Up [address] [place] [phone] Mandie Carranza PA Albumin Creatinine Ratio, Urine, Vitamin D 25 hydroxy, Comprehensive metabolic panel 03/15/2025 11:00 AM CDT Office Visit [address] [place] [phone] Mandie Carranza PA Type 2 diabetes mellitus with complication, with long-term current use of insulin (HCC) (Primary Dx); BMI 22.0-22.9, adult; Need for pneumococcal 20-valent conjugate vaccination; Menopause; Age-related osteoporosis without current pathological fracture from Last 3 Months Allergies Active Allergy Reactions Criticality Noted Date [...] 60 each 1 01/19/20 25 2024 Discontinued(R eorder) Ventolin HFA 90 mcg/actuation inhalerIndication s:Chronic obstructive [...] 09/18/2024 Assessment & Plan (09/18/2024 12:57 PM SANDWICH ARTIST): Prevnar 20 updated in the office today Medicare annual wellness visit, subsequent 09/18 Assessment & Plan (09/18/2024 12:57 PM SANDWICH ARTIST): Encouraged healthy lifestyle, good nutrition and exercise. Encouraged Calcium and Vitamin D and weight bearing exercise for bone health. Reviewed immunizations. Reviewed age appropirate screenings. Medicare Wellness Documentation is completed within the chart Breast cancer screening by mammogram 09/18/2024 Assessment & Plan (09/18/2024 12:57 PM SANDWICH ARTIST): Mammogram order provided BMI 22.0-22.9, adult 07/05/2022 Assessment & Plan (03/15/2025 11:08 AM CDT): Weight/BMI is in healthy range. Continue healthy lifestyle to maintain. Assessment & Plan (09/18/2024 10:15 AM SANDWICH ARTIST): Weight/BMI is in healthy range. Continue healthy lifestyle to maintain. Assessment & Plan (03/12/2024 8:54 PM CDT): Weight/BMI is in healthy range. Continue healthy lifestyle to maintain. Assessment & Plan (08/02/2023 10:57 AM SANDWICH ARTIST): Weight/BMI is in healthy range. Continue healthy lifestyle to maintain. Assessment & Plan (07/05/2022 8:18 PM CDT): Weight/BMI is in healthy range. Continue healthy lifestyle to maintain. Anemia 07/16/2019 Assessment & Plan (08/15/2023 9:25 PM SANDWICH ARTIST): Continue to monitor labs Assessment & Plan (07/05/2022 8:17 PM CDT): Continue to monitor labs Assessment & Plan (06/01/2021 2:13 AM CDT): Monitor labs Age related osteoporosis 02/25/2019 Assessment & Plan (09/18/2024 12:58 PM SANDWICH ARTIST): Patient with osteoporosis. Continue monitor DEXA. Continue [...] stable Assessment & Plan (08/15/2023 9:25 PM SANDWICH ARTIST): Patient with osteoporosis. Encouraged complete smoking cessation. [...] 09 Assessment & Plan (08/02/2021 10:35 PM SANDWICH ARTIST): Discussed osteoporosis, Tscores and treatment options. Needs [...] avaialble. Assessment & Plan (08/03/2020 11:39 PM SANDWICH ARTIST): Due for Prolia. Needs labs prior. Assessment [...] 05/2020 Assessment & Plan (07/16/2019 1:48 PM SANDWICH ARTIST): Continue Prolia Assessment & Plan (03/02/2019 11:42 AM CDT): Continue calcium, vitamin D and exercise. Prolia given today in the office (patient supplied/shipped from her pharmacy). Pt tolerated well. Return in 6 months for next injection. [facility] [id number] Lot: [id number] Colonoscopy refused 02/21/2019 Assessment & Plan (09/18/2024 12:56 PM SANDWICH ARTIST): Patient continues to refuse colon cancer screening. She understands the risk of lack of screening. Assessment & Plan (03/12/2024 8:44 PM CDT): Refuses colon cancer screening Assessment & Plan (08/15/2023 9:22 PM SANDWICH ARTIST): Patient refuses colon cancer screening. Reviewed importance of early detection Assessment & Plan (12/28/2020 8:09 PM CDT): Reviewed importance of screening. Pt voiced understanding. Assessment & Plan (08/03/2020 11:50 PM SANDWICH ARTIST): Reviewed importance of screening. Pt voiced understanding. Assessment & Plan (04/20/2020 10:19 AM CDT): Reviewed importance of screening. Pt voiced understanding. Assessment & Plan (02/25/2019 1:06 PM CDT): Refuses colon cancer screening. Verbalizes risk of not screening. Type 2 diabetes mellitus wit h complication, with long-term current use of insulin 02/17/2019 Assessment & Plan (09/18/2024 12:54 PM SANDWICH ARTIST): Stressed importance of continued A1c control to minimize the program therapist effects of diabetes. Bring accuchecks to office when instructed to do so. Check A1c about every 3-6 months. Take medication as prescribed. Get annual eye exam. Encouraged MALLORY/Statin if able to tolerate. Encouraged weight control and encouraged diabetic diet and exercise. A1c is at goal with the metformin XR 500 b.i.d.. Encouraged diabetic eye exam. She plans to get the [facility] are prior to her next visit as she was unable to urinate when she went to draw this last 1 Assessment & Plan (03/12/2024 8:52 PM CDT): Stressed importance of continued A1c control to minimize the nursing home effects of diabetes. Bring accuchecks to office when instructed to do so. Check A1c about every 3-6 months. Take medication as prescribed. Get annual eye exam. Encouraged MALLORY/Statin if able to tolerate. Encouraged weight control and encouraged diabetic diet and exercise. Continue metformin XR 500 2 tabs b.i.d.. Due for labs Assessment & Plan (08/02/2021 10:34 PM SANDWICH ARTIST): Stressed importance of continued A1c control to minimize the program therapist effects of diabetes. Bring accuchecks to office when instructed to do so. Check A1c about every 3-6 months. Take medication as prescribed. Get annual eye exam. Encouraged MALLORY/Statin if able to tolerate. Encouraged weight control and encouraged diabetic diet and exercise. Continue metformin and insulin. Refills sent Assessment & Plan (06/01/2021 2:12 AM CDT): Stressed importance of continued A1c control to minimize the nursing home effects of diabetes. Bring accuchecks to office [...] of continued A1c control to minimize the nursing home effects of diabetes. Bring accuchecks to office when instructed to do so. Check A1c about every 3-6 months. Take medication as prescribed. Get annual eye exam. Encouraged MALLORY/Statin if able to tolerate. Encouraged weight control and encouraged diabetic diet and exercise. conitnue Basaglar 8 units Assessment & Plan (08/03/2020 11:51 PM SANDWICH ARTIST): Stressed importance of continued A1c control to minimize the program therapist effects of diabetes. Bring accuchecks to office when instructed to do so. Check A1c about every 3-6 months. Take medication as prescribed. Get annual eye exam. Encouraged MALLORY/Statin if able to tolerate. Encouraged weight control and encouraged diabetic diet and exercise. A1c 6 so well controlled Assessment & Plan (04/20/2020 10:19 AM CDT): Stressed importance of continued A1c control to minimize the nursing home effects of diabetes. Bring accuchecks to office when instructed to do so. Check A1c about every 3-6 months. Take medication as prescribed. Get annual eye exam. Encouraged MALLORY/Statin if able to tolerate. Encouraged weight control and encouraged diabetic diet and exercise. Continue metformin and insulin. Needs labs Assessment & Plan (11/25/2019 6:49 PM CDT): Stressed importance of continued A1c control to minimize the nursing home effects of diabetes. Bring accuchecks to office when instructed to do so. Check A1c about every 3-6 months. Take medication as prescribed. Get annual eye exam. Encouraged MALLORY/Statin if able to tolerate. Encouraged weight control and encouraged diabetic diet and exercise. Assessment & Plan (07/16/2019 1:58 PM SANDWICH ARTIST): Stressed importance of continued A1c control to minimize the program therapist effects of diabetes. Bring accuchecks to office when instructed to do so. Check A1c about every 3-6 months. Take medication as prescribed. Get annual eye exam. Encouraged MALLORY/Statin if able to tolerate. Encouraged weight control and encouraged diabetic diet and exercise. Assessment & Plan (02/25/2019 1:04 PM CDT): Stressed importance of continued A1c control to minimize the program therapist effects of diabetes. Bring accuchecks to office when instructed to do so. Check A1c about every 3-6 months. Take medication as prescribed. Get annual eye exam. Encouraged MALLORY/Statin if able to tolerate. Encouraged weight control and encouraged diabetic diet and exercise. Needs eye exam. Type 2 diabetes mellitus with hyperlipidemia Assessment & Plan (09/18/2024 12:56 PM SANDWICH ARTIST): Encouraged patient to follow low fat/low chol [...] 20 Assessment & Plan (08/15/2023 9:24 PM SANDWICH ARTIST): Stressed importance of continued A1c control to minimize the nursing home effects of diabetes. Bring accuchecks to office [...] of continued A1c control to minimize the nursing home effects of diabetes. Bring accuchecks to office [...] of continued A1c control to minimize the program therapist effects of diabetes. Bring accuchecks to office [...] of continued A1c control to minimize the program therapist effects of diabetes. Bring accuchecks to office [...] labs Assessment & Plan (08/03/2020 11:43 PM SANDWICH ARTIST): Encouraged patient to follow fat/low chol diet [...] statin Assessment & Plan (07/16/2019 1:59 PM SANDWICH ARTIST): Encouraged patient to continue low fat/low chol diet. Continue exercise. Increase good fats in the diet. Monitor labs as needed. Assessment & Plan (02/25/2019 1:05 PM CDT): Encouraged patient to continue low fat/low chol diet. Continue exercise. Increase good fats in the diet. Monitor labs as needed. Continue statin COPD (chronic obstructive pulmonary disease) Assessment & Plan (09/18/2024 12:56 PM SANDWICH ARTIST): Patient with known COPD. Encouraged complete smoking cessation. Will try breasts tree. See chronic respiratory failure above Assessment & Plan (03/12/2024 8:50 PM CDT): Severe COPD with respiratory failure and hypoxia. On continuous O2. Continue with Dr. Fofana pulmonology. She has using the Anoro and Ventolin as instructed. Patient continues to decline low-dose CT Assessment & Plan (08/15/2023 9:24 PM SANDWICH ARTIST): Patient with significant COPD. Has O2 at [...] Fofana Assessment & Plan (08/03/2020 11:39 PM SANDWICH ARTIST): Continue per Pulmonary Assessment & Plan (04/20/2020 10:17 AM CDT): Continue per pulmonary Assessment & Plan (11/25/2019 6:45 PM CDT): STOP SMOKING. On Symbicort and albuterol prn. Not using Spiriva (has refused Incruse also in the past) Assessment & Plan (10/25/2019 4:33 PM SANDWICH ARTIST): STOP smoking. Check CT lungs. Take Advair bid as directed. Refuses Incruse so may change to Spiriva. Will discuss referral to Pulmonary again at her next visit. Assessment & Plan (02/25/2019 1:01 PM CDT): COPD exacerbation is resolving after the steroids and antibiotics. Chronic respiratory failure with hypoxia, on home O2 therapy 02/17/2019 Assessment & Plan (09/18/2024 12:56 PM SANDWICH ARTIST): Chronic respiratory failure on supplemental O2 therapy [...] CT Assessment & Plan (08/15/2023 9:24 PM SANDWICH ARTIST): Patient with significant COPD. Has O2 at home but only uses it w hen I needed. Advise she probably needs to be on it all the time. Has a normal at home. Uses albuterol p.r.n. Assessment & Plan (08/03/2020 11:37 PM SANDWICH ARTIST): Continue per pulmonary Assessment & Plan (04/20/2020 10:16 AM CDT): Continue per Pulmonary Assessment & Plan (11/25/2019 6:44 PM CDT): Refer to Pulmonary for further evlauation Assessment & Plan (10/25/2019 4:31 PM SANDWICH ARTIST): On O2 at night. May need to assess for daytime need. Assessment & Plan (02/25/2019 1:01 PM CDT): Has needed supplies/O2 Nocturnal hypoxia 02/17/2019 Assessment & Plan (12/28/2020 8:07 PM CDT): Continue O2 per Dr. Fofana Assessment & Plan (08/03/2020 11:39 PM SANDWICH ARTIST): On O2, managed by pulmonary Assessment & Plan (11/25/2019 6:41 PM CDT): On hs O2. Assessment & Plan (10/25/2019 4:31 PM SANDWICH ARTIST): On night O2 Assessment & Plan (02/25/2019 1:02 PM CDT): On nighttime O2 Allergy to MALLORY inhibitors 02/17/2019 Overview (06/27/2020): Angioedema Assessment & Plan (02/25/2019 1:05 PM CDT): No change Cigarette smoker 02/17/2019 Assessment & Plan (09/18/2024 12:56 PM SANDWICH ARTIST): Encouraged smoking cessation. Discussed 3 minutes. Reviewed options for assistance with cessation. Reviewed nursing home sequela associated with smoking. Pt declines assistance at this time but may contact the office at anytime for further help as they desire. Assessment & Plan (03/12/2024 8:53 PM CDT): Encouraged smoking cessation. Discussed 3 minutes. Reviewed options for assistance with cessation. Reviewed program therapist sequela associated with smoking. Pt declines assistance at this time but may contact the office at anytime for further help as they desire. Patient declines low-dose CT Assessment & Plan (08/15/2023 9:23 PM SANDWICH ARTIST): Encouraged smoking cessation. Discussed 3 minutes. Reviewed options for assistance with cessation. Reviewed nursing home sequela associated with smoking. Pt declines assistance at this time but may contact the office at anytime for further help as they desire. Refuses low-dose CT Assessment & Plan (07/05/2022 8:17 PM CDT): Encouraged smoking cessation. Discussed 3 minutes. Reviewed options for assistance with cessation. Reviewed program therapist sequela associated with smoking. Pt declines assistance at this time but may contact the office at anytime for further help as they desire. Assessment & Plan (08/02/2021 10:34 PM SANDWICH ARTIST): Encouraged smoking cessation. Discussed 3 minutes. Reviewed options for assistance with cessation. Reviewed nursing home sequela associated with smoking. Pt declines assistance at this time but may contact the office at anytime for further help as they desire. Assessment & Plan (06/01/2021 2:15 AM CDT): Encouraged smoking cessation. Discussed 3 minutes. Reviewed options for assistance with cessation. Reviewed program therapist sequela associated with smoking. Pt declines assistance at this time but may contact the office at anytime for further help as they desire. Assessment & Plan (12/28/2020 8:09 PM CDT): Encouraged smoking cessation. Discussed 3 minutes. Reviewed options for assistance with cessation. Reviewed nursing home sequela associated with smoking. Pt declines assistance at this time but may contact the office at anytime for further help as they desire. Assessment & Plan (08/03/2020 11:48 PM SANDWICH ARTIST): Encouraged smoking cessation. Discussed 3 minutes. Reviewed options for assistance with cessation. Reviewed nursing home sequela associated with smoking. Pt declines assistance at this time but may contact the office at anytime for further help as they desire. Assessment & Plan (04/20/2020 10:19 AM CDT): Encouraged smoking cessation. Discussed 3 minutes. Reviewed options for assistance with cessation. Reviewed program therapist sequela associated with smoking. Pt declines assistance at this time but may contact the office at anytime for further help as they desire. Assessment & Plan (10/25/2019 4:07 PM SANDWICH ARTIST): Encouraged smoking cessation. Discussed 3 minutes. Reviewed options for assistance with cessation. Reviewed program therapist sequela associated with smoking. Pt declines assistance [...] [id number] Assessment & Plan (08/06/2019 7:25 PM SANDWICH ARTIST): Encouraged smoking cessation. Discussed 3 minutes. Reviewed options for assistance with cessation. Reviewed program therapist sequela associated with smoking. Pt declines assistance at this time but may contact the office at anytime for further help as they desire. Assessment & Plan (07/16/2019 1:45 PM SANDWICH ARTIST): Encouraged smoking cessation. Discussed 3 minutes. Reviewed options for assistance with cessation. Reviewed nursing home sequela associated with smoking. Pt declines assistance [...] 03/12/2024 Assessment & Plan (08/15/2023 9:22 PM SANDWICH ARTIST): Encouraged healthy lifestyle, good nutrition and exercise. Encouraged Calcium and Vitamin D and weight bearing exercise for bone health. Reviewed immunizations. Reviewed age appropirate screenings. Medicare Wellness Documentation is completed within the chart Need for vaccination 07/05/2022 024 Assessment & Plan (08/15/2023 9:25 PM SANDWICH ARTIST): Flu vaccine updated in the office today Assessment & Plan (07/05/2022 8:18 PM CDT): Flu vaccine updated in the office Serum calcium elevated 01/27/202203/12 Assessment & Plan (07/05/2022 8:18 PM CDT): Continue to monitor labs Assessment & Plan (01/27/2022 3:30 PM CDT): Check ionized calcium. Vitamin-D level is 46 so it is in range. BMI 25.0-25.9,adult 01/15/2022 07/05/20 22 Assessment & Plan (01/15/2022 3:32 PM CDT): Weight/BMI is in healthy range. Continue healthy lifestyle to maintain. Flu vaccine need 08/02/2021 08/02/2021 Assessment & Plan (08/02/2021 10:36 PM SANDWICH ARTIST): Flu vaccine updated in the office today BMI 25.0-25.9,adult 07/07/2021 01/16/20 Assessment & Plan (08/02/2021 10:35 PM SANDWICH ARTIST): Weight/BMI is in healthy range. Continue healthy [...] re-evaluate Assessment & Plan (08/15/2023 9:25 PM SANDWICH ARTIST): Probably multifactorial. Check labs and followup to [...] 12/28/2020 Assessment & Plan (08/03/2020 11:52 PM SANDWICH ARTIST): Updated in office. Positive depression screening 06/30/2020 [...] 021 Assessment & Plan (08/03/2020 11:48 PM SANDWICH ARTIST): Weight/BMI is in healthy range. Continue healthy lifestyle to maintain. Assessment & Plan (04/20/2020 10:19 AM CDT): Weight/BMI is in healthy range. Continue healthy lifestyle to maintain. Assessment & Plan (11/25/2019 6:50 PM CDT): Weight/BMI is in healthy range. Continue healthy lifestyle to maintain. Assessment & Plan (10/25/2019 3:17 PM SANDWICH ARTIST): Weight/BMI is in healthy range. Continue healthy lifestyle to maintain. Bilateral impacted cerumen 10/25/2019 0 09/18/2024 Assessment & Plan (11/25/2019 6:40 PM CDT): Use the DeBrox and return so I can check/clean the ears out. Assessment & Plan (10/25/2019 4:31 PM SANDWICH ARTIST): Start Debrox. Recheck in 3-4 weeks and may need washed out. Encounter for screening for lung cancer 10/25/2019 10/25/2019 Type 2 diabetes mellitus wit hout complication, without long-term current use of insulin 10/25/2019 04/20/2020 Assessment & Plan (10/25/2019 4:35 PM SANDWICH ARTIST): Stressed importance of continued A1c control to minimize the nursing home effects of diabetes. Bring accuchecks to office when instructed to do so. Check A1c about every 3-6 months. Take medication as prescribed. Get annual eye exam. Encouraged MALLORY/Statin if able to tolerate. Encouraged weight control and encouraged diabetic diet and exercise. Nicotine dependence, cigaret kajal, uncomplicated 10/25/2019 08/02/2021 Assessment & Plan (10/25/2019 4:34 PM SANDWICH ARTIST): Encouraged smoking cessation. Discussed 3 minutes. Reviewed options for assistance with cessation. Reviewed nursing home sequela associated with smoking. Pt declines assistance at this time but may contact the office at anytime for further help as they desire. Encounter for screening for malignant neoplasm of respiratory organs 10/25/2019 Assessment & Plan (10/25/2019 4:35 PM SANDWICH ARTIST): Check LDCT Other fatigue 07/16/2019 06/01/2021 Assessment & Plan (11/25/2019 6:50 PM CDT): Probably multifactorial. Check labs and followup to re-evaluate Assessment & Plan (07/16/2019 2:00 PM SANDWICH ARTIST): Probably multifactorial. Check labs and followup to [...] plan Assessment & Plan (10/25/2019 4:29 PM SANDWICH ARTIST): Could be multiple reasons. Ears - will use Debrox and wash again at next visit. COPD/Hypoxia - Check CT lungs. Take Advair bid as directed. Refuses Incruse so may change to Spiriva. Will discuss referral to Pulmonary again at her next visit. Assessment & Plan (08/06/2019 7:25 PM SANDWICH ARTIST): Recommend to monitor closely. Stop smoking. If sxs persist/return will consider referral to ENT Assessment & Plan (07/16/2019 2:02 PM SANDWICH ARTIST): ? Etiology but may related to the otitis. Medclizine prn. Followup 6 weeks to reassess Otitis of right ear 07/16/2019 10/25/19 20 Assessment & Plan (07/16/2019 1:47 PM SANDWICH ARTIST): Start antibiotic, antihistamine, Mucinex and Steroid nasal spray. Push fluids. Rest. Supportive care. If sxs worsen or don\'t improve, pt is to followup in the office. Stop smoking Need for immunization against influenza 07/16/2019 08/06/2019 Assessment & Plan (07/16/2019 2:00 PM SANDWICH ARTIST): Updated in the office today Medicare annual wellness visit, initial 02/25/2019 07/16/2019 Assessment & Plan (02/25/2019 1:06 PM CDT): Encouraged healthy lifestyle, good nutrition and exercise. Encouraged Calcium and Vitamin D and weight bearing exercise for bone health. Reviewed immunizations Reviewed age appropirate screenings. Documentation is on the chart. BMI 25.0-25.9,adult 02/21/2019 10/25/19 20 Assessment & Plan (07/18/2019 1:49 PM SANDWICH ARTIST): Weight/BMI is in healthy range. Continue healthy lifestyle to maintain. Assessment & Plan (06/19/2019 11:08 AM CDT): Weight/BMI is in healthy range. Continue healthy lifestyle to maintain. Assessment & Plan (02/21/2019 3:49 PM CDT): Weight/BMI is in healthy range. Continue healthy lifestyle to maintain. Age-related osteoporosis wit hout current pathological fracture 02/17/2019 04/20/2020 Assessment & Plan (10/25/2019 4:30 PM SANDWICH ARTIST): Stop smoking. Encourage calcium, vitamin D and [...] Return in 6 months for next injection. [facility] [id number] Lot: [id number] COPD (chronic obstructive pu lmonary disease) with chronic bronchitis 08/11/2016 07/05/2022 Overview (06/09/2022): severe controlled Hyperlipidemia 08/11/2016 07/05/2022 Overview (06/09/2022): stable on statin Immunizations Immunization Administration Dates Next Due Influenza, Quadrivalent, Hig h Dose, Preservative Free, Intrr 08/02/2023,06/11/2022,07/17/2021,06/27 Influenza, Trivalent, High D ose, Split, Preservative Free, Intramuscular 09/18/2024,06/19/2019,06/12/2018,05/20,07/24/2015 Pneumococcal Conjugate PCV 13 07/25/2015 Pneumococcal Conjugate Pcv20 03/26/2025 Social History Tobacco Use Types Packs/Day Years [...] on file Legal Sex Female 3:27 AM SANDWICH ARTIST Gender Identity Female 11/12/2019 11:13 PM CDT Sexual Orientation Straight 11/12/2019 11 :13 PM CDT Occupation Industry Job Start Date Job End Date Retired Not on file Not on file Not on file Last Filed Vital Signs Vital Sign Reading [...] 03/15/2025 11:00 AM CDT Plan of Treatment Not on file Procedures Procedure Name Priority Date/Time Associated Diagnosis [...] (HCC) LIPID PANEL Routine 09/08/2024 10:49 AM SANDWICH ARTIST Type 2 diabetes mellitus without complication, without long-term current use of insulin (HCC) SCREENING MAMMOGRAM 2D BILATERAL Schedule Routine, Read Routine (OP Routine) 10/18/2023 9:55 AM SANDWICH ARTIST DEXA AXIAL SKELETON BONE DENSITY 1 OR MORE SITES Schedule Routine, Read Routine (OP Routine) 10/18/[address] LUNG CANCER SCREENING Schedule Routine, Read Routine (OP Routine) 11/07/2019 1:13 PM SANDWICH ARTIST Nicotine dependence, cigarettes, uncomplicated from Last 3 [...] RAMÍREZ LAB URINE ORDERABLES Final Result [facility] [id number] [place] [id number] * Vitamin D 25 hydroxy (03/05/2025 10:04 AM CDT) Vitamin D 25-OH 49 30 - 100 ng/mL [facility] Comment: Vitamin D Status 25-OH Vitamin D: Deficiency: <20 ng/mL Insufficiency: 20 - 29 ng/mL Optimal: > or = 30 ng/mL For 25-OH Vitamin D testing on patients on D2-supplementation and patients for whom quantitation of D2 and D3 fractions is required, the QuestAssureD(TM) 25-OH VIT D, (D2,D3), LC/MS/MS is recommended: order code 67140 (patients >2yrs). See Note 1 Note 1 For additional information, please refer to http://education.Embly/faq/RWX464 (This link is being provided for informational/ educational purposes only.) Blood 03/05/2025 10:0 4 AM CDT 03/05/2025 10:05 AM CDT Narrative [facility] - 03/06/2025 6:33 AM CDT FASTING:YES FASTING: YES Madnie RAMÍREZ LAB BLOOD ORDERABLES Final Result [facility] [address] [address] [place] [address] * (ABNORMAL) Comprehensive metabolic panel (03/05/2025 10:04 AM CDT) [facility] Glucose 117(H) 65 - 99 mg/dL [employer] [facility] Comment: Fasting reference interval For someone without known diabetes, a glucose value between 100 and 125 mg/dL is consistent with prediabetes and should be confirmed with a follow-up test. BUN 11 7 - 25 mg/dL [employer] [facility] Creatinine 0.60 0.60 - 1.00 mg/dL [employer] sukh Vega eGFR 92 > OR = 60 mL/min/1.7 3m2 [employer] [facility] BUN/creat ratio SEE NOTE: 6 - 22 (calc) [employer] [facility] Comment: Not Reported: BUN and Creatinine are within reference range. Sodium 141 135 - 146 mmol/L [employer] sukh Vega Potassium, pl 4.4 3.5 - 5.3 mmol/L [employer] [facility] Chloride 97(L) 98 - 110 mmol/L [facility] Polyv[facility]ega CO2 32 20 - 32 mmol/L [employer] su[facility] Vega Calcium 10.5(H) 8.6 - 10.4 mg/dL [employer] [facility] Protein, sr 7.5 6.1 - 8.1 g/dL [employer] sukh [place] Albumin 4.6 3.6 - 5.1 g/dL [facility] uskh Vega GLOBULIN 2.9 1.9 - 3.7 g/dL (calc) [facility] Alb/glob ratio 1.6 1.0 - 2.5 (calc) Rush PollardJohn [facility]ega Bilirubin, total 0.6 0.2 - 1.2 mg/dL [facility] sukh Vega Alk phos 77 37 - 153 U/L [facility] sukh Vega AST 18 10 - 35 U/L [facility] sukh Vega ALT (SGPT) 15 6 - 29 U/L [facility] sukh Vega Blood 03/05/2025 10:0 4 AM CDT 03/05/2025 10:05 AM CDT Narrative [facility] - 03/06/2025 6:33 AM CDT FASTING:YES FASTING: YES us Mandie RAMÍREZ LAB BLOOD ORDERABLES Final Result [facility] [address] [place] [address] * (ABNORMAL) Lipid panel (09/08/2024 10:49 AM SANDWICH ARTIST) Cholesterol 121 <200 mg/dL [facility] sukh Vega HDL 53 > OR = 50 mg/dL [facility] sukh Vega Triglycerides 152(H) <150 mg/dL [facility] sukh Vega LDL 45 mg/dL (calc) [facility] TriptrottingJohn Vega Comment: Reference range: <100 Desirable range <100 mg/dL for primary prevention; <70 mg/dL for patients with CHD or diabetic patients with > or = 2 CHD risk factors. LDL-C is now calculated using the Inder calculation, which is a validated novel method providing better accuracy than the Friedewald equation in the estimation of LDL-C. Agustin BLANCO et al. JOHN PAUL. 2013;310(19): 3544-4246 (http://education.Embly/faq/FQP315) Chol/HDL ratio 2.3 <5.0 (calc) [facility] TriptrottingJohn Vega Non-HDL, (LDL+VLDL) 68 <130 mg/dL (calc) [employer] sukh Vega Comment: For patients with diabetes plus 1 major ASCVD risk factor, treating to a non-HDL-C goal of <100 mg/dL (LDL-C of <70 mg/dL) is considered a therapeutic option. Blood 09/08/2024 10:4 9 AM SANDWICH ARTIST 09/08/2024 10:50 AM SANDWICH ARTIST Narrative [facility] - 09/09/2024 4:48 AM SANDWICH ARTIST PATIENT UNABLE TO VOID; ADVISED TO RETURN FOR COLLECTION. Mandie RAMÍREZ LAB BLOOD ORDERABLES Final Result [facility] [address] [place] [address] * Screening Mammogram 2D Bilateral (10/18/2023 9:55 AM SANDWICH ARTIST) Anatomical Region Laterality Modality Breast Bilateral Mammography Historical Provider IMG MAMMO PROCEDURES Carolyne l Result * (ABNORMAL) Dexa Axial Skeleton Bone Density 1 or 2 Site (10/18/2023) SCRIBED DXA T-SCORE -2.0 SCRIBED DXA Z-SCORE 0.3 SCRIBED DXA BMD 0.760 Anatomical Region Laterality Modality Body N/A Radiographic Suha ging Mandie THOMASG DXA PROCEDURES Final R esult * CT Lung Cancer Screening (11/07/2019 1:13 PM SANDWICH ARTIST) Anatomical Region Laterality Modality Chest N/A Computed Tomogra phy 11/09/2019 7:23 AM SANDWICH ARTIST Narrative 11/09/2019 7:27 AM SANDWICH ARTIST Patient Name: FIDELIA WALTERS Ordering Dr: Mandie Carranza PA-C D.O.B: 1945 Exam Date: 11/07/19 1313 Age: 73 Sex: Female MR#: [id number] Loc: RADIOLOGY REPORT Order #[id number] CT Scan CT Lung Screen Signed EXAM [...] signed by Gilmer ANGUIANO T: Report ID: [id number] Reading Location: [place] [address] REPORT ELECTRONICALLY SIGNED IN OTHER VENDOR SYSTEM Resulting Agency Comment O Procedure Note Gilmer García MD - 11/09/2019 Patient Name: Heide WALTERS Dr: Mandie Carranza PA-C D.O.B: 1945 Exam Date: 11/07/191312 Age: 73 Sex: Female MR#: [id number] Loc: RADIOLOGY REPORT Order #[id number] CT Scan CT Lung Screen Signed EXAM [...] signed by Gilmer ANGUIANO T: Report ID: [id number] Reading Location: [place] [address] REPORT ELECTRONICALLY SIGNED IN OTHER VENDOR SYSTEM Mandie RAMÍREZ IMG CT PROCEDURES Final Re sult from Last 3 Months or Most Recently Relevant to Health Maintenance Insurance MEDICARE IDPA MEDICARE IDPA Care Teams Managing Editor Relationship Specialty Start Date End Date Mandie Carranza PA [address] [facility] [address] [place] [address] PCP - General Internal Medicine 12/23/18
--- OUTSIDE RECORDS SUMMARY | 2025-03-30 14:51 | XMS_ITS | Encounter Summary ---
Author Organization [facility] Facility Care Team Providers Care Baccarat Manager Name Role Phone Mandie Carranza Primary Care Provider [phone] Encounter Details Date Type Department Care Team (Latest Contact Info) Description 05/14/2016 Orders Only [facility] CLINCONV ProviderPatricia MD [address] [place] [id number] Social History Tobacco Use Types Packs/Day Years Used Date Smoking Tobacco: Never Assessed Comments Unknown Sex and Gender Information Value Date Recorded Sex Assigned at Not on file Legal Sex Female 3:27 AM [employer] MECH[employer]IC Gender Identity Female 11/12/2019 11:13 PM CDT Sexual Orientation Straight 11/12/2019 11 :13 PM CDT documented as of this encounter Plan of Treatment Not on file documented as of this encounter Procedures Procedure Name Priority Date/Time Associated Diagnosis Comments SCAN - LABS 04/23/2017 12:00 AM CDT documented in this encounter Results * SCAN - LABS (04/23/2017 12:00 AM CDT) Narrative 04/23/2017 12:00 AM CDT Ordered by an unspecified provider. Historical Provider Final Res ult documented in this encounter Visit Diagnoses Not on filedocumented in this encounter Care Teams Baccarat Manager Relationship Specialty Start Date End Date Mandie Carranza PA [address] [place] [address] PCP - General Internal Medicine 12/23/18 documented as of this encounter
== END 2025-03-30 14:48 | disposition home or self-care (01) ==
LOC: ANHIMG 14:49
PROVIDERS: PCP Physician Assistant; Visit Provider Physician Assistant
DX: Z12.31 Encounter for screening mammogram for malignant neoplasm of breast (principal)
CPT/HCPCS: 77063; 77067